=== PATIENT | male | born 1970 | race Caucasian/White ===

== ENCOUNTER 2016-07-10 05:23 | Inpatient (IN) | payer OTHER ==
[2016-07-03 13:52] LABS: HEMATOCRIT 44.8 % (40.0-51.0); HEMOGLOBIN 15.5 g/dL (13.6-17.8)
--- NOTE | ~2016-07-10 | OP ---
Record Of Operation [facility] [address] [place]. [address] NAME: PAUL MEDINA : 72 STATUS : ADM IN PAT#: [id number] AGE: 45 ADM/REG DATE : 07/10/16 MR#: [id number] REPORT SERV DATE: 07/12/16 DICTATED BY: ISAIAS LORA DATE: 07/12/16 REPORT STATUS : Draft TRANSCRIBED BY: MODL DATE: 07/12/16 DATE OF PROCEDURE: 07/12/2016 PREOPERATIVE DIAGNOSES: 1. Cervical spondylosis, spinal stenosis, and myelopathy. 2. Grade 1 spondylolisthesis, C4-5. POSTOPERATIVE DIAGNOSES: 1. Cervical spondylosis, spinal stenosis, and myelopathy. 2. Grade 1 spondylolisthesis, C4-5. PROCEDURES: 1. A C3-4, C5-6, and C6-7 hemilaminotomy and foraminotomy. 2. Posterolateral fusion with segmental vertex instrumentation at C4-3 to C7. SURGEON: Isaias Lora D.O. WINDOW TRIMMER: Andra Clemens. ANESTHESIA: General. BLOOD LOSS: 75 mL. INDICATIONS: Indication for surgery and risks were explained. They are listed in the history and physical. See that for detail. PROCEDURE IN DETAIL: The patient was identified in the preop holding area, antibiotic prophylaxis given. Neurophysiology monitoring leads were inserted. The patient was brought to the operative suite. General anesthetic including endotracheal intubation was administered. He already had a Nguyen catheter in place. While in the supine position, his scalp was painted with Betadine solution. Lawrence three-point fixation was attached to the skull using 60 pounds torque in a standard position. The Lawrence was attached to the top portion of the Mario bed. He was in a clamshell position, rotated 180 degrees into the prone position. The bony prominences were carefully padded. The hairline was shaved. Isolation drapes were placed. The neck was scrubbed with Hibiclens solution. DuraPrep was painted. Sterile drapes were applied. With loupe magnification and headlight illumination, a midline incision was carried out. The fascia was divided in midline. The paraspinous muscles were retracted laterally. The exposure was carried out from C2 to the top of T1. Again because of the complexity of surgery, the need to identify correct level of surgeries intraoperatively and desire to carry out the safest and most precise dissection, we felt intraoperative navigation was mandatory. Intraoperative CT scan with O-arm was obtained. CT information was used to register the navigational system. Record Of Operation [facility] [address] [place] [address] NAME: PAUL MEDINA : 72 STATUS : ADM IN PAT#: [id number] AGE: 45 ADM/REG DATE : 07/10/16 MR#: [id number] REPORT SERV DATE: 07/12/16 DICTATED BY: ISAIAS LORA DATE: 07/12/16 REPORT STATUS : Draft TRANSCRIBED BY: ODILON DATE: 07/12/16 With navigational assistance, I then completed the C3-4, C5-6, and C6-7 hemilaminectomy, foraminotomy, and partial facetectomy decompressing using a cutting bur, 3 mm and 2 mm debi bur, and a 1 mm Kerrison rongeurs to complete the surgery. After the decompressions were completed, I then used a 2 mm debi bur with a navigational assistance, created a river pilot hole in the lateral masses of C3, 4, 5, and then the pedicle of C7 bilaterally. Each of the river pilot holes were tapped. The facet joints were decorticated. The polyaxial Vertex Select 3.5 x 14 mm screw was placed in the lateral masses of C3, 4, and 5 bilaterally. Please note that we did use an Prince technique directing the screws at proximal, lateral, and anterior. At C7, a 22 mm x 4.0 mm screw was placed. The rods were then cut to the appropriate length, contoured for lordosis, placed over the top loading tulips. The set screws were inserted and tightened with a torque wrench providing rigid stability. Same construct left and right side. Lateral masses were already decorticated. The wound was copiously irrigated. A lateral mass fusion was carried out using the small amount of local bone graft, as well as the allograft in a fibrous form. Vancomycin powder was placed in the wound. Intraoperative CT scan with O-arm was repeated showing good position of all implants. A 15 Ben drain was placed in the subfascial layer. The myofascial layer was closed with multiple layers with #1 interrupted Vicryl suture, subcutaneous tissue closed with 2-0 Vicryl sutures, 2-0 vertical mattress nylon suture used for skin closure. Sterile dressings were applied. The patient returned to supine position. The Lawrence was removed. No bleeding was noted. The patient was awakened, extubated, and taken to the recovery room in satisfactory condition having tolerated the procedure well. Sponge, needle, and instrument counts were correct. No intraoperative complications noted. DEYSI/ODILON Isaias Lora D.O. / [id number] CC: Prakash Infante M.D.
--- NOTE | ~2016-07-10 | OP ---
Record Of Operation [facility] [address] [place]. [address] NAME: PAUL MEDINA : 72 STATUS : ADM IN PAT#: [id number] AGE: 45 ADM/REG DATE : 07/10/16 MR#: [id number] REPORT SERV DATE: 07/10/16 DICTATED BY: ISAIAS LORA DATE: 07/10/16 REPORT STATUS : Draft TRANSCRIBED BY: MODL DATE: 07/10/16 DATE OF PROCEDURE: PREOPERATIVE DIAGNOSES: 1. Cervical spondylosis, spinal stenosis, myelopathy. 2. 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 POSTOPERATIVE DIAGNOSES: 1. Cervical spondylosis, spinal stenosis, myelopathy. 2. 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 PROCEDURES: 1. Microscopic navigation-assisted surgery. 2. Anterior cervical diskectomy, foraminotomy, C4-5, C5-6, C6-7. 3. Anterior interbody fusion with a cortical cancellous wedge-shaped allograft C4-C5, C5- 6, C6-7. 4. Anterior segmental spinal instrumentation with Venture plating C4-C7. SURGEON: Isaias Lora D.O. OFFICE SERVICES ASSISTANT: Andra Clemens. ANESTHESIA: General. ESTIMATED BLOOD LOSS: 30 mL. INDICATIONS FOR SURGERY: Risks were explained. They are listed in the last office note as well as history and physical, see that for detail. DESCRIPTION OF PROCEDURE: Antibiotic prophylaxis was given. Neurophysiology monitoring leads were inserted. The patient brought to the operative suite. General anesthetic including endotracheal intubation was administered. A Nguyen catheter was placed with sterile technique. The patient was intubated with a GlideScope. No extension or flexion of the neck was carried out. The preoperative MEP and SEP monitoring was intact. After the patient was intubated, a small towel was placed behind the shoulders. The neck was in a neutral alignment. The scalp was painted with Betadine solution. Lawrence 3-point fixation attached to the skull using 60 pounds of torque in standard position. The Lawrence attached to the Mario bed. The Wortal navigational registration frame was attached to the [place]. The arms were taped by the side. The isolation drapes were placed. The neck was scrubbed with Hibiclens solution. DuraPrep was painted. Sterile drapes applied. Because of the complexity of surgery, the need to identify correct level of surgery intraoperatively as well as desire to carry out the safest and most precise dissection with least amount of radiation exposure, I felt intraoperative navigation was mandatory. Intraoperative CT scan with O-arm obtained, CT information used to register the navigational Record Of Operation [facility] [id number] [place]. [address] NAME: PAUL MEDINA : 72 STATUS : ADM IN PAT#: [id number] AGE: 45 ADM/REG DATE : 07/10/16 MR#: [id number] REPORT SERV DATE: 07/10/16 DICTATED BY: ISAIAS LORA DATE: 07/10/16 REPORT STATUS : Draft TRANSCRIBED BY: MODRosana DATE: 07/10/16 system. With navigational assistance, I identified the C4-5, C5-6, and C6-7 level. At the C5-C6 level on the left side, a transverse 2.5 to 3 cm skin incision was carried out. The platysma muscle was incised in line with the skin incision. The superficial layer of the deep cervical fascia was released along the anterior border of the sternocleidomastoid. Blunt dissection was carried out at the retropharyngeal space where the longus colli muscles were subperiosteally elevated. Intraoperative re-identification of the level of surgery was carried out, once exposure was completed and the retractors were in place. I initially placed [place] distractor pins in the midline at C6 and 7. The microscope was sterilely draped and used throughout the remainder of the procedure. Initially I debrided the anterior osteophytes. I released the anterior longitudinal ligament and removed the disk. Disk space was rather collapsed, very slowly, gradually distracted disk space widening the disk space as we moved from anterior to posterior. After the disk and the endplate cartilage were removed. I then debrided the uncinate processes generously. I was able to identify the location of the foramen transversarium using navigational assistance and I carefully stayed medial to this location. I debrided the uncinate processes, took down the posterior longitudinal ligament with a 1 mm Kerrison rongeur and carried out a wide foraminotomy out past the axilla of the nerve using a 2 mm debi bur. The wounds were irrigated again. Intraoperative measurements were taken for the width, depth, and height of the disk space. A wedge-shaped cortical cancellous allograft was inserted increasing the overall lordosis of the disk space. Traction was released locking the graft in good position. Next, I moved to C5-6 and repeated the same identical steps, once again there was a significant foraminal stenosis as well as some cord compression. We carried out the same anterior diskectomy, wide foraminotomy, interbody fusion. Finally moving to C4-5, I again repeated the same identical steps. The only difference at C4-5, there was a central disk herniation with free fragment in the epidural space. Once again, we placed a cortical cancellous allograft. Over the three levels we had an excellent correction of the overall kyphosis. Finally, an 8 hole Venture plate was placed over the mid bodies of C4, C5, C6, and C7 with properly aligned it with navigational assistance of 8 holes were drilled, locking screws inserted, providing rigid stability. Intraoperative CT scan with O-arm repeated showing excellent position of all implants. The wound was carefully inspected, no bleeding was noted. A #7 flat Ben drain inserted in the retropharyngeal space. The platysma was closed with a running 3-0 Vicryl suture. The subcutaneous tissue closed with 3-0 Vicryl suture and subcuticular 4-0 PDS used for skin closure. Sterile dressings applied. The patient awakened, extubated, and taken to recovery room in satisfactory condition having tolerated the procedure well. /[facility] Record Of Operation [facility] [address] [facility] [place]. [address] NAME: PAUL MEDINA : 72 STATUS : ADM IN [facility]#: [id number] AGE: 45 ADM/REG DATE : 07/10/16 MR#: [id number] REPORT SERV DATE: 07/10/16 DICTATED BY: ISAIAS LORA DATE: 07/10/16 REPORT STATUS : Draft TRANSCRIBED BY: MODL DATE: 07/10/16 Isaias Lora D.O. / [id number] CC: Isaias Lora D.O.
--- NOTE | ~2016-07-10 | PREOPHP ---
PreOp History and Physical [facility] [address] [place]. [address] NAME: PAUL MEDINA : 72 STATUS : ADM IN PAT#: [id number] AGE: 45 ADM/REG DATE : 07/10/16 MR#: [id number] REPORT SERV DATE: 07/10/16 DICTATED BY: ISAIAS LORA DATE: 07/10/16 REPORT STATUS : Draft TRANSCRIBED BY: MODL DATE: 07/10/16 CHIEF COMPLAINT: 1. Neck pain, shoulder, arm pain. 2. Weakness in the upper and lower extremities. HISTORY OF PRESENT ILLNESS: This is a 45-year-old male, who was seen in the office with complaints of neck pain, bilateral arm pain, shoulder pains as well as lower extremity weakness. The patient has had some symptoms since 2008, but been gradually worsening. He has been treated by Dr. Corona Callaway in the past, and has had much conservative care, including medications, anti-inflammatories, muscle relaxer steroids, pain medications. He has also had significant amount of physical therapy. When the patient was seen, his plain x rays revealed severe degenerative disk disease and spondylosis of the lower cervical spine. There was marked cervical kyphosis. There was about 10 degrees of kyphosis from C2-C7. His cervical sagittal vertical axis was 5.5 cm, normal being 2.4 cm. He had a grade 1 spondylolisthesis, C4-C5. An MRI was obtained which showed significant spinal stenosis, moderate to severe with cord compression at C3-C4, C6-C7, and lesser degrees at the remaining cervical levels. The patient basically at his young age is dealing with two problems, one is cord compression which is affecting the neurology, #2 he has a significant deformity. Due to the above and because of his young age, I think he really needs both the deformity and the cord compression addressed. He is admitted for a 2 stage procedure, the first stage will be an anterior cervical diskectomy for anterior cord decompression at C4- C5, C5-C6, and C6-C7. This will also help correct the overall deformity. He will have interbody allograft fusion with anterior plate from C4-C7. He will then have a second-stage surgery which will be a laminectomy, foraminotomy C3-C7 with lateral mass fusion and segmental instrumentation. Prior to surgery, we have gone over the risks, benefits, alternatives, expectations, and these have been listed in the last office note. Again this morning after identifying the patient and discussing the surgery with he and his as well as his daughter who was at the bedside. Once again, we explained the risks can include everything up to and including quadriplegia and even . Consent form has been signed. Also please note, with both the anterior and posterior stages of surgery, cause of the need to identify correct level of surgery intraoperatively as well as desire to carry out the safest and most precise dissection with least amount of radiation exposure, we feel intraoperative navigation is mandatory. PAST MEDICAL HISTORY: None. PAST SURGICAL HISTORY: None. CURRENT MEDICATIONS: and hydrocodone. ALLERGIES: NONE. SOCIAL HISTORY: He is . Right-hand dominant, works as a maintenance lead. He has been a smoker of half pack per day. We have asked him to stop, which he has done just in the last few days. He rarely uses alcohol. PreOp History and Physical [address] [address] NAME: PAUL MEDINA : 72 STATUS : ADM IN [facility]#: [id number] AGE: 45 ADM/REG DATE : 07/10/16 MR#: [id number] REPORT SERV DATE: 07/10/16 DICTATED BY: ISAIAS LORA DATE: 07/10/16 REPORT STATUS : Draft TRANSCRIBED BY: ODILON DATE: 07/10/16 FAMILY HISTORY: His mother had hypertension and his father had OK at age 66. REVIEW OF SYSTEMS: Otherwise, negative. PHYSICAL EXAMINATION: VITAL SIGNS: He is 6 feet 1 inches, 260 pounds. His BMI is 35.3. GENERAL: He is alert, cooperative, well oriented. He ambulates independently. HEENT: Normocephalic. Pupils are equal and reactive to light. Extraocular muscles are intact. Oral exam is grossly normal. No thyromegaly is palpated. No carotid bruits are auscultated. MUSCULOSKELETAL: Cervical spine itself does show deformity as head is anterior to his chest with his range of motion being limited, but he has a negative Lhermitte sign. He has a negative Spurling sign, negative abducted arm sign. He does have some hyperreflexia of the brachioradialis and the triceps as well as both lower extremities. His toes are upgoing, but no ankle clonus is found. He does not have significant sensory deficit in the upper extremities. Charly sign is positive. Tinel sign is negative to elbow and wrist. His motor strength of the lower extremities is completely normal. No sensory deficit in the upper or lower extremities. The shoulders have no signs of impingement. LUNGS: Clear to auscultation. HEART: Rate is regular and rhythmic. ABDOMEN: Soft with good bowel sounds. No peritoneal signs noted. EXTREMITIES: The lower extremity musculoskeletal exam is grossly intact and normal. There are good pulses in all four extremities. No abnormal skin lesions are found. ASSESSMENT: 1. Severe disk degeneration and spondylosis and cervical thoracic malalignment. 2. Cord compression, C3-C4, C4-C5, and C6-C7. 3. Grade 1 spondylolisthesis, C4-C5. RECOMMENDATIONS: Two-stage procedure anterior cervical diskectomy, foraminotomy, interbody fusion, with wedge-shaped allograft to lordosis of C4-C5, C5-C6, and C6-C7. Second stage procedure of laminectomy with lateral mass fusion and segmental instrumentation at C3-C7. /ODILON Isaias Lora D.O. / [id number] CC: Isaias Lora D.O. PreOp History and Physical [address] [address] NAME: PAUL MEDINA : 72 STATUS : ADM IN [facility]#: [id number] AGE: 45 ADM/REG DATE : 07/10/16 MR#: [id number] REPORT SERV DATE: 07/10/16 DICTATED BY: ISAIAS LORA DATE: 07/10/16 REPORT STATUS : Draft TRANSCRIBED BY: MODL DATE: 07/10/16 Kurt Simmons M.D.
--- NOTE | ~2016-07-10 | DS ---
Discharge Summary [facility] [address] [place]. [address] NAME: PAUL MEDINA : 72 STATUS : DIS IN PAT#: [id number] AGE: 45 ADM/REG DATE : 07/10/16 MR#: [id number] REPORT SERV DATE: 07/20/16 DICTATED BY: ISAIAS VIZCAINO DATE: 07/20/16 REPORT STATUS : Draft TRANSCRIBED BY: MODRosana DATE: 07/20/16 Data Collection from hospitalization DISCHARGE DIAGNOSES: 1. Cervical spondylosis, spinal stenosis and myelopathy. 2. 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 3. Tobacco use. 4. Obstructive sleep apnea. CONSULTATIONS: None. PROCEDURES PERFORMED: 1. Microscopic navigation-assisted surgery - anterior cervical diskectomy, foraminotomy at C4-C5, C5-C6, and C6-C7; anterior interbody fusion with cortical cancellous wedge- shaped allograft at C4-C5, C5-C6, C6-C7; anterior segmental spinal instrumentation with Venture plating at C4-C7 on 07/10/2016. 2. C3-C4, C5-C6, and C6-C7 hemilaminotomy and foraminotomy; posterolateral fusion with segmental vertex instrumentation at C4-C3 to C7 on 07/12/2016. 3. CT scan of the cervical spine without contrast on 07/14/2016. PATHOLOGY: Tissue from cervical spine - benign cartilaginous tissue, osseous fragments and soft tissue. MEDICATIONS: Neurontin 100 mg every eight hours, Dilaudid 2-4 mg every four hours as needed, and Robaxin 750 mg every eight hours. CONDITION AT DISCHARGE: Stable. DISPOSITION: The patient was discharged home on a regular diet with activities as instructed. He would follow up with Dr. Jumana Kendall on 07/26/2016. HOSPITAL COURSE: This is a 45-year-old man who has been seen in the office with complaints of neck pain, bilateral arm pain, shoulder pain as well as lower extremity weakness. He had some of these symptoms since 2008, but they had gradually worsened. He had been treated by Dr. Malachi Callaway in the past and had undergone much conservative care including medication, anti-inflammatories, muscle relaxer, steroids, and pain medication. He has also had a significant amount of physical therapy. Plain x-rays revealed severe degenerative disk disease and spondylosis of the lower cervical spine. There was marked cervical kyphosis. There was about 10 degrees of kyphosis from C2-C7. His cervical sagittal vertical axis was 5.5 cm, however, normal is 2.4 cm. He had grade 1 spondylolisthesis at C4 C5. An MRI showed significant spinal stenosis, moderate to severe with cord compression at C3-C4, C6-C7, and lesser degrees at the remaining cervical levels. Treatment options were discussed and it was elected to proceed with surgical intervention. He was admitted to the hospital at this time for further evaluation and treatment. Upon admission, he was taken to the operating room where he underwent the above-mentioned procedure. He tolerated this well, and there were no complications. On postop day #1, he was doing well. He had less pain in his arms and shoulders. He had normal distal pulses. Discharge Summary [address] [address] NAME: PAUL MEDINA : 72 STATUS : DIS IN PAT#: [id number] AGE: 45 ADM/REG DATE : 07/10/16 MR#: [id number] REPORT SERV DATE: 07/20/16 DICTATED BY: ISAIAS VIZCAINO DATE: 07/20/16 REPORT STATUS : Draft TRANSCRIBED BY: MODL DATE: 07/20/16 His dressings were clean, dry, and intact. On 07/12/2016, he was taken back to the operating room where he underwent the above-mentioned procedure. He tolerated this well, and there were no complications. The following day, he was doing well with regard to his arm pain. He was changed to oral medications. He was alert and cooperative. He had good pain control. He was evaluated by Physical Therapy. Discharge planning was performed. On 07/14/2016, a CT scan of the cervical spine without contrast was performed. Discharge instructions were given. Due to his improved and stable condition, he was discharged home with the above-stated instructions. Information collected by: Lisseth Reid I submit the above information as my discharge summary. ANTOINE/ODILON Isaias Vizcaino D.O. / [id number] CC: Prakash Infante M.D.
[~2016-07-10 05:23] MED LIST: FLEX PO; NAP500 PO; NORCO1 TA2 PO
[2016-07-14] MEDS ORDERED: METHOC750B PO (09:17)
[2016-07-14] MEDS ORDERED: DIL2TAB PO (09:17)
[2016-07-14] MEDS ORDERED: NEUR100 PO (09:18)
[2016-07-14] MEDS ORDERED: DIL4TAB PO (09:18)
== END 2016-07-14 14:20 | disposition home or self-care (01) | DRG 455 ==
LOC: SDC/OF 05:23 → PACU 11:49 → 3SO 13:06
PROVIDERS: Orthopaedic Surgery Orthopaedic Surgery of the Spine
DX: M40.292 Other kyphosis, cervical region (principal); F17.210 Nicotine dependence, cigarettes, uncomplicated; G47.33 Obstructive sleep apnea (adult) (pediatric)
CPT/HCPCS: 72040; 72125; 82962; 85014; 85018; 87641; 88304; 88311; 97161-GP; A9270-GY; C1713; C1768; J0690; J1170; J1644; J1885; J2250; J2270; J2405; J2710; J3010; J3370